=== PATIENT | male | born 1940 | race Caucasian/White ===

== ENCOUNTER 2017-02-01 19:34 | Emergency (ER) | payer MEDICARE, BC ==
[2017-02-01] MEDS ORDERED: ALTEPLASE, RECOMBINANT 50 MG PDS IV ONE ×3 (19:41→20:24)
[2017-02-01] MEDS ORDERED: SODIUM CHLORIDE 0.9% 1000ML 1,000 ML IV SCH (19:45)
[2017-02-01] MEDS ORDERED: ONDANSETRON HCL 4 MG/2 ML SOL ONE (19:46)
[2017-02-01 19:47] LABS: BASOPHILS % (AUTO) 1 % (0-3); EOSINOPHILS % (AUTO) 1 % (0-9); HEMATOCRIT 39 % (39-53); MEAN CORPUSCULAR HGB CONC 32.9 gm/dl (32.0-36.0); MEAN CORPUSCULAR VOLUME 91 fL (80-100); MONOCYTES % (AUTO) 9.7 % (0-12); NEUTROPHILS % (AUTO) 71.6 % (37-80)
[2017-02-01] MEDS: ONDANSETRON HCL 4 MG/2 ML SOL IV ONE ×2 (19:48→20:07)
[2017-02-01] MEDS ORDERED: ONDANSETRON HCL 4 MG/2 ML SOL IV ONE (19:48)
[2017-02-01] MEDS ORDERED: SODIUM CHLORIDE 0.9% FLUSH 10 ML SOL IV PRN (19:56)
[2017-02-01 20:05] LABS: CALCIUM 9.5 mg/dl (8.5-10.1); GLOM FILT RATE 71 mL/min (>60); POTASSIUM 4.1 mMol/L (3.5-5.1); SODIUM 137 mMol/L (136-145)
[2017-02-01 20:13] LABS: APPEARANCE,URINE Clear; BILIRUBIN,URINE NEGATIVE (NEGATIVE); COLOR,URINE Yellow; GLUCOSE, URINE (UA) NEGATIVE (NEGATIVE); KETONES,URINE TRACE (NEGATIVE); LEUKOCYTE ESTERASE ,URINE NEGATIVE (NEGATIVE); NITRATE,URINE NEGATIVE (NEGATIVE); OCCULT BLOOD,URINE NEGATIVE (NEG-TRACE); PH,URINE 5.5
[2017-02-01 20:25] LABS: RBC,URINE 0-1 (0-3AV/HPF); WBC,URINE 0-3 (0-5AV/HPF)
[2017-02-01 20:26] VITALS: BP 188/104; PULSE 82; RESP 21; O2SAT 96
[2017-02-01 20:53] VITALS: TEMP 98.4
== END 2017-02-01 20:13 | disposition short-term general hospital (02) | DRG 65 ==
LOC: ED 19:34
DX: I63.9 Cerebral infarction, unspecified (principal); G81.94 Hemiplegia, unspecified affecting left nondominant side; R47.81 Slurred speech; R29.810 Facial weakness; R40.2362 Coma scale, best motor response, obeys commands, at arrival to emergency department; R40.2142 Coma scale, eyes open, spontaneous, at arrival to emergency department; R40.2252 Coma scale, best verbal response, oriented, at arrival to emergency department; R29.713 NIHSS score 13; R20.0 Anesthesia of skin
CPT/HCPCS: 70450; 80048; 81001; 82962; 83880; 84484; 85025; 85610; 93005; 99291; J2405; J2997